=== PATIENT | male | born 1995 | race Hispanic/Latino ===

== ENCOUNTER 2018-03-31 13:38 | Emergency (ER) | payer BC, SELFPAY ==
[2018-03-31] MEDS ORDERED: methylPREDNISolone Sod Succ/PF 125 MG/2 ML VIAL ONE (13:42)
[2018-03-31] MEDS ORDERED: diphenhydrAMINE 50 MG/ML VIAL ONE (13:42)
[2018-03-31] MEDS ORDERED: Water For Inject, Bacteriostat 30 ML ONE (13:43)
[2018-03-31] MEDS ORDERED: Ondansetron HCl/PF 4 MG/2 ML Vial ONE (13:48)
[2018-03-31] MEDS ORDERED: EPINEPHrine 1 MG/ML AMP ONE (13:51)
[2018-03-31] MEDS ORDERED: Famotidine/PF 20 mg/2ml Vial ONE (14:29)
[2018-03-31] MEDS ORDERED: Sodium Chloride 0.9% 0 ML ONE (19:27)
== END 2018-03-31 13:50 | disposition home or self-care (01) ==
LOC: SCSER 13:38
DX: T60.91XA Toxic effect of unspecified pesticide, accidental (unintentional), initial encounter (principal); T78.2XXA Anaphylactic shock, unspecified, initial encounter; F17.200 Nicotine dependence, unspecified, uncomplicated
CPT/HCPCS: 96361; 96372; 96374; 96375; J0171; J1200; J2405; J2930; J7050; S0028